=== PATIENT | male | born 1990 | race Caucasian/White ===

== ENCOUNTER 2020-09-28 19:23 | Emergency (ER) | payer OTHER ==
[2020-09-28 19:27] VITALS: BP 123/68; PULSE 80; RESP 18; TEMP 97.3
--- NOTE | 2020-09-28 19:55 | ED ---
Upper Extremity HPI - General Chief Complaint: Extremity Injury, Upper Stated Complaint: L Shoulder Pain Time Seen by Provider: 09/28/20 19:27 Source: patient Mode of arrival: ambulatory Limitations: no limitations - History of Present Illness Initial Comments: 30 year-old male patient [facility] the city [facility] today for evaluation of left shoulder pain. Patient states 2 weeks ago he was doing shoulder presses at the gym when he felt pain to the left shoulder. States that he took 2 weeks off rested and went back couple of days ago. States he is still having some discomfort especially with any pushing, pulling, or lifting. States that he went to the grocery store today was carrying and packs of water to the house when he had worsening pain to the area that most part of the tears. He denies any pain at rest. States he has full range of motion without difficulty on the when he applies pressure to the joint does have discomfort. Denies numbness or tingling to the hand or arm. Denies any previous injury to the shoulder. Denies taking anything for pain. Patient denies any headache, neck pain, back pain, chest pain, shortness of breath, dizziness, weakness, abdominal pain, nausea, vomiting, or difficulties with bowel movements or urination. - Related Data Previous Rx's Medication Instructions Recorded Ibuprofen [Motrin] 600 mg PO Q8HR PRN #30 tab 09/28/20 Allergies Allergy/AdvReac Type Severity Reaction Status Date / Time No Known Allergies Allergy Verified 09/28/20 20:11 Review of Systems ROS Statement: Those systems with pertinent positive or pertinent negative responses have been documented in the HPI. ROS Other: All systems not noted in ROS Statement are negative. Past Medical History Past Medical History: No Reported History History of Any Multi-Drug Resistant Organisms: None Reported Past Surgical History: No Surgical Hx Reported Smoking Status: Never smoker Past Alcohol Use History: Occasional Past Drug Use History: None Reported General Exam Limitations: no limitations General appearance: alert, in no apparent distress, other (This is a well- developed, well-nourished adult male patient in no acute distress. Vital signs upon presentation are temperature 97.3F, pulse 80, respirations 18, blood pressure 123/68, pulse ox 99% on room air.) Respiratory exam: Present: normal lung sounds bilaterally. Absent: respiratory distress, wheezes, rales, rhonchi, stridor Cardiovascular Exam: Present: regular rate, normal rhythm, normal heart sounds. Absent: systolic murmur, diastolic murmur, rubs, gallop, clicks GI/Abdominal exam: Present: soft, normal bowel sounds. Absent: distended, tenderness, guarding, rebound, rigid Extremities exam: Present: normal inspection, full ROM, normal capillary refill, other (Left shoulder appears normal. No overlying erythema or swelling. No tenderness. Skin is pink, warm, dry. Cap refills less than 3 seconds. Radial pulses 2+.). Absent: tenderness, pedal edema, joint swelling, calf tenderness Neurological exam: Present: alert, oriented X3, CN II-XII intact Psychiatric exam: Present: normal affect, normal mood Skin exam: Present: warm, dry, intact, normal color. Absent: rash Course Vital Signs 09/28/20 19:24 Temperature 97.3 F L Pulse Rate 80 Respiratory 18 Rate Blood Pressure 123/68 O2 Sat by Pulse 99 Oximetry Medical Decision Making - Medical Decision Making 30-year-old male patient presents to the emergency department today for evaluation of left shoulder pain after injury 2 weeks ago. Physical examination was unremarkable. Patient had no overlying erythema, swelling, he exhibited full active range of motion. X-ray was negative. We did discuss muscle strain as a cause for his symptoms. We discussed proper orthopedics for further evaluation 1-2 days. Return parameters were discussed in detail. He verbalizes understanding and agrees this plan. - Radiology Data Radiology results: report reviewed, image reviewed 3 views of left shoulder obtained. Report was reviewed in its entirety. Impression by Dr. Elias shows negative left shoulder exam. Disposition Clinical Impression: Left shoulder strain Disposition: HOME SELF-CARE Condition: Good Instructions (If sedation given, give patient instructions): Shoulder Sprain (ED) Additional Instructions: Follow-up with the primary care physician or disease education specialist for further evaluation as soon as possible. Rest the shoulder. Take anti-inflammatory medications. Return to the emergency department for any new, worsening, or concerning symptoms. Prescriptions: Ibuprofen [Motrin] 600 mg PO Q8HR PRN #30 tab PRN Reason: Pain Is patient prescribed a controlled substance at d/c from ED?: No Referrals: None,Stated [Primary Care Provider] - 1-2 days Adebayo Kolb MD [STAFF PHYSICIAN] - 1-2 days Time of Disposition: 20:22
--- NOTE | 2020-09-28 19:59 | XR ---
EXAMINATION TYPE: XR shoulder complete LT DATE OF EXAM: 09/28/2020 COMPARISON: NONE HISTORY: Injury. Pain. TECHNIQUE: 3 views FINDINGS: I see no fracture nor dislocation. Joint spaces are normal. There are no pathologic calcifi cations. IMPRESSION: Negative left shoulder exam.
== END 2020-09-28 20:31 | disposition home or self-care (01) ==
LOC: EC 19:23
DX: S46.912A Strain of unspecified muscle, fascia and tendon at shoulder and upper arm level, left arm, initial encounter (principal); X50.0XXA Overexertion from strenuous movement or load, initial encounter; Y93.43 Activity, gymnastics; Y92.39 Other specified sports and athletic area as the place of occurrence of the external cause
CPT/HCPCS: 99283